=== PATIENT | female | born 1975 | race Caucasian/White ===

== ENCOUNTER 2022-07-23 20:29 | Emergency (ER) | payer BC ==
[~2022-07-23] VITALS: Ht 180.3 cm; Wt 131.1 kg
[2022-07-23 21:08] VITALS: BP 170/98
--- NOTE | 2022-07-23 22:30 | NUR ---
Patient lying in bed, ER physician at bedside assessing patient.
[2022-07-23 22:36] LABS: APPEARANCE,URINE CLEAR (CLEAR); BILIRUBIN,URINE NEGATIVE (NEGATIVE); BLOOD, URINE NEGATIVE (NEGATIVE); COLOR,URINE YELLOW (YELLOW); LEUKOCYTE ESTERASE ,URINE NEGATIVE (NEGATIVE); NITRITE, URINE NEGATIVE (NEGATIVE); UGLUCOSE NEGATIVE (NEGATIVE)
[2022-07-23] MEDS ORDERED: ONDANSETRON 4 MG/2 ML VIAL IVP ONE (22:40)
[2022-07-23] MEDS ORDERED: NACL 0.9% 1,000 ML IV ONE (22:40)
[2022-07-23] MEDS ORDERED: KETOROLAC 30 MG/ML VIAL IVP ONE (22:40)
[2022-07-23 22:54] LABS: BASOPHILS % (AUTO) 0.3 % (0.0-2.0); EOSINOPHILS % (AUTO) 0.5 % (0.0-4.0); HEMATOCRIT 33.1 % (36-48); HEMOGLOBIN 11.6 g/dL (12.0-16.0); LYMPHOCYTES # (AUTO) 0.8 K/uL (2.5-16.5); LYMPHOCYTES % (AUTO) 20.6 % (20.5-51.1); MEAN CORPUSCULAR HEMOGLOBIN 32 pg (27-31); MEAN CORPUSCULAR HGB CONC 35 g/dL (33-37); MEAN CORPUSCULAR VOLUME 92.3 fL (80-94); MONOCYTES # (AUTO) 0.7 K/uL (0.8-1.0); MONOCYTES % (AUTO) 17.5 % (1.7-9.3); NEUTROPHILS # (AUTO) 2.5 K/uL (1.8-7.7); NEUTROPHILS % (AUTO) 61.1 % (42.2-75.2); PLATELET COUNT (AUTO) 244 K/uL (140-450); RED BLOOD CELL COUNT(AUTO) 3.59 MIL/uL (4.20-5.40); RED CELL DISTRIBUTION WIDTH 13.2 % (11.6-13.7)
--- NOTE | 2022-07-23 23:30 | NUR ---
Patient lying in bed, A/Ox4, chest rise and fall symmetrical, no c/o pain or s/s of distress.
[2022-07-23 23:48] LABS: ALBUMIN 3.3 g/dL (3.4-5.0); ANION GAP 12.4 (8-16); CARBON DIOXIDE 25.7 mmol/L (21-32); POTASSIUM 4.1 mmol/L (3.5-5.1); TOTAL BILIRUBIN 0.7 mg/dL (0.0-1.0)
--- NOTE | 2022-07-24 00:01 | NUR ---
Patient lying in bed, A/Ox4, chest rise and fall symmetrical, no c/o pain or s/s of distress.
[2022-07-24] MEDS ORDERED: ACET-8386 PO (00:58)
[2022-07-24] MEDS ORDERED: NAPR-54 PO (00:58)
--- NOTE | 2022-07-24 01:00 | NUR ---
Patient lying in bed, A/Ox4, chest rise and fall symmetrical, no c/o pain or s/s of distress.
[2022-07-24 01:06] VITALS: BP 122/85
== END 2022-07-24 01:09 | disposition home or self-care (01) ==
LOC: MED 20:29
DX: R10.9 Unspecified abdominal pain (principal); E11.9 Type 2 diabetes mellitus without complications; Z79.4 Long term (current) use of insulin; Z79.899 Other long term (current) drug therapy
CPT/HCPCS: 36415; 80053; 81003; 81025; 85025; 96361; 96374; 96375; 99284; J1885; J2405; 82948; J7030

== ENCOUNTER 2023-02-10 01:35 | Emergency (ER) | payer BC ==
[~2023-02-10] VITALS: Ht 180.3 cm; Wt 127.0 kg
[~2023-02-10 01:35] MED LIST: ACET-8905 PO; NAPR-54 PO
[2023-02-10 01:44] VITALS: BP 130/81
--- NOTE | 2023-02-10 02:50 | NUR ---
ER Dr. Lomax evaluating patient at this time.
[2023-02-10] MEDS ORDERED: KETOROLAC 30 MG/ML VIAL IM ONE (03:00)
[2023-02-10] MEDS ORDERED: GABAPENTIN 300 MG CAP PO ONE (03:00)
[2023-02-10] MEDS ORDERED: CYCLOBENZAPRINE 10 MG TAB PO ONE (03:00)
[2023-02-10] MEDS ORDERED: LIDOCAINE 5% 1 EA PATCH TP SCH ×2 (03:06→09:00)
--- NOTE | 2023-02-10 03:14 | NUR ---
Attempted to collect urine for toradol. Made aware of effects on toradol on . Pt stated she is not at this time.
[2023-02-10] MEDS ORDERED: MORPHINE SULFATE 10 MG/ML VIAL IM ONE (04:15)
[2023-02-10] MEDS ORDERED: ONDANSETRON 4 MG ODT PO ONE (04:15)
[2023-02-10] MEDS ORDERED: HYDROcodone/APAP 10/325 MG 1 TAB TAB PO PRN (05:25)
[2023-02-10] MEDS ORDERED: LID5T TP ×2 (05:26→05:49)
[2023-02-10] MEDS ORDERED: GABA300C PO ×2 (05:26→05:49)
[2023-02-10] MEDS ORDERED: HYDR-5191 PO ×2 (05:26→05:49)
[2023-02-10] MEDS ORDERED: IBUP-2213 PO ×2 (05:26→05:49)
[2023-02-10] MEDS ORDERED: CYCL-711 PO ×2 (05:32→05:49)
[2023-02-10 05:45] VITALS: BP 130/81
--- NOTE | 2023-02-10 05:45 | NUR ---
Patient discharged with v/s stable. Written and verbal after care instructions given and explained. New rx flexeril, gabapentin, norco, ibuprofen, and lidocaine. Patient verbalized understanding. Ambulatory with steady gait. All questions addressed prior to discharge. Advised to follow up with PMD.
== END 2023-02-10 05:45 | disposition home or self-care (01) ==
LOC: MED 01:35
DX: M54.31 Sciatica, right side (principal); R60.0 Localized edema; E11.9 Type 2 diabetes mellitus without complications; Z79.4 Long term (current) use of insulin; Z79.899 Other long term (current) drug therapy
CPT/HCPCS: 93971; 96372; 99285; J1885; J2270; Q0092; Q0162

== ENCOUNTER 2023-08-19 18:24 | Emergency (ER) | payer BC, MEDICAID ==
[~2023-08-19] VITALS: Ht 180.3 cm; Wt 134.0 kg
[~2023-08-19 18:24] MED LIST changes: +CYCL-711 PO; +GABA300C PO; +HYDR-5191 PO; +IBUP-2213 PO; +LID5T TP
[2023-08-19 18:47] VITALS: PULSE 90; RESP 18; TEMP 97.8; O2SAT 100
[2023-08-19 20:25] LABS: BASOPHILS % (AUTO) 0.2 % (0.0-2.0); EOSINOPHILS # (AUTO) 0.1 K/uL (0-0.4); EOSINOPHILS % (AUTO) 1.5 % (0.0-4.0); HEMATOCRIT 37.3 % (36-48); HEMOGLOBIN 12.8 g/dL (12.0-16.0); LYMPHOCYTES # (AUTO) 2.9 K/uL (2.5-16.5); LYMPHOCYTES % (AUTO) 54.6 % (20.5-51.1); MEAN CORPUSCULAR HEMOGLOBIN 32 pg (27-31); MEAN CORPUSCULAR HGB CONC 34 g/dL (33-37); MEAN CORPUSCULAR VOLUME 92.8 fL (80-94); MONOCYTES # (AUTO) 0.6 K/uL (0.8-1.0); MONOCYTES % (AUTO) 10.7 % (1.7-9.3); NEUTROPHILS # (AUTO) 1.7 K/uL (1.8-7.7); PLATELET COUNT (AUTO) 291 K/uL (140-450); RED BLOOD CELL COUNT(AUTO) 4.02 MIL/uL (4.20-5.40); RED CELL DISTRIBUTION WIDTH 13.3 % (11.6-13.7); WHITE BLOOD COUNT (AUTO) 5.3 K/uL (4.8-10.8)
[2023-08-19 20:43] LABS: ALBUMIN 3.5 g/dL (3.4-5.0); ANION GAP 9.8 (8-16); CALCIUM 8.9 mg/dL (8.5-10.1); CREATININE 0.9 mg/dL (0.6-1.3); POTASSIUM 3.8 mmol/L (3.5-5.1); TOTAL BILIRUBIN 0.4 mg/dL (0.0-1.0)
[2023-08-19] MEDS ORDERED: SULF-59 PO (21:04)
[2023-08-19 21:26] VITALS: BP 138/81; PULSE 90; RESP 18; TEMP 97.8; O2SAT 100
== END 2023-08-19 21:26 | disposition home or self-care (01) ==
LOC: MED 18:24
DX: S91.301A Unspecified open wound, right foot, initial encounter (principal); L08.89 Other specified local infections of the skin and subcutaneous tissue; L03.115 Cellulitis of right lower limb; E11.9 Type 2 diabetes mellitus without complications; Z79.899 Other long term (current) drug therapy; Z79.2 Long term (current) use of antibiotics; Z79.1 Long term (current) use of non-steroidal anti-inflammatories (NSAID); X58.XXXA Exposure to other specified factors, initial encounter; Y92.89 Other specified places as the place of occurrence of the external cause; Y93.89 Activity, other specified; Y99.8 Other external cause status
CPT/HCPCS: 36415; 73630; 80053; 81025; 85025; 99284